=== PATIENT | male | born 1950 | race Caucasian/White ===

== ENCOUNTER → 2017-11-19 | Outpatient (CLI) | payer OTHER | END | disposition home or self-care (01) | LOC: NUC 08:52 | DX: R94.02 Abnormal brain scan (principal); R25.1 Tremor, unspecified; R26.2 Difficulty in walking, not elsewhere classified | CPT/HCPCS: 78607; A9584 ==

== ENCOUNTER 2018-04-26 14:15 | Emergency (ER) | payer OTHER ==
[~2018-04-26] VITALS: Ht 177.8 cm; Wt 109.2 kg
[2018-04-26 16:47] VITALS: BP 122/52
== END 2018-04-26 16:47 | disposition home or self-care (01) ==
LOC: EME 14:15
PROC: 0HQ1XZZ Repair Face Skin, External Approach (ICD-10-PCS; principal; 2018-04-26)
DX: S01.81XA Laceration without foreign body of other part of head, initial encounter (principal); W10.9XXA Fall (on) (from) unspecified stairs and steps, initial encounter; E11.9 Type 2 diabetes mellitus without complications; I10 Essential (primary) hypertension; G20 Parkinson's disease; Z87.891 Personal history of nicotine dependence
CPT/HCPCS: 70450; 99281; 99284